=== PATIENT | male | born 1995 | race Caucasian/White ===

== ENCOUNTER 2020-09-17 00:33 | Emergency (ER) | payer MEDICAID ==
[~2020-09-17] VITALS: Ht 172.7 cm; Wt 65.2 kg
[~2020-09-17 00:33] MED LIST: NO HOME MEDS
[2020-09-17] MEDS ORDERED: amox tr/potassium clavulanate 875/125mg TAB PO ONE (00:40)
[2020-09-17] MEDS ORDERED: mupirocin 2% ointment 22GM TP ONE (00:40)
[2020-09-17] MEDS ORDERED: ondansetron 4mg rapidly disintigrating tab PO ONE (00:40)
[2020-09-17 00:41] VITALS: BP 123/92
[2020-09-17] MEDS ORDERED: AMOX-117 PO (00:43)
== END 2020-09-17 00:57 ==
LOC: ER 00:33
DX: S81.831A Puncture wound without foreign body, right lower leg, initial encounter (principal); F15.90 Other stimulant use, unspecified, uncomplicated; Z72.89 Other problems related to lifestyle; Z98.890 Other specified postprocedural states; Z56.0 Unemployment, unspecified; Z79.899 Other long term (current) drug therapy; W54.0XXA Bitten by dog, initial encounter; Y93.89 Activity, other specified; Y92.89 Other specified places as the place of occurrence of the external cause; Y99.8 Other external cause status
CPT/HCPCS: 99284